=== PATIENT | male | born 1955 | race Caucasian/White ===

== ENCOUNTER → 2016-08-31 | Outpatient (CLI) | payer BC ==
--- NOTE | 2016-08-31 13:14 | REP ---
MR LUMBAR SPINE WITHOUT CONTRAST: HISTORY: Spondylosis. Decreased signal intensity on T2-weighted images is present in the L1-2 through L4-5 intervertebral discs. The discs are decreased in height. These findings are consistent with disc degeneration. A diffuse disc bulge is present at the L1-2 level. There is hypertrophy of the ligamenta flava and posterior articulating facets. These findings produce minimal central canal stenosis. The L1 nerves exit the neural foramina without compression. A diffuse disc bulge is present at the L2-3 level. There is hypertrophy of the ligamenta flava and posterior articulating facets. A 2 mm synovial cyst is present medial to the left L2-3 facet joint. These findings produce moderate central canal stenosis. The L2 nerves exit the neural foramina without compression. A diffuse disc bulge is present at the L3-4 level. There is hypertrophy of the ligamenta flava and posterior articulating facets. A 4 mm synovial cyst is present medial to the left L3-4 facet joint. These findings produce severe central canal stenosis. The L3 nerves exit the neural foramina without compression. The patient is post L4-5 posterior spinal fusion and laminectomy. Metal rods and pedicle screws are present. A diffuse disc bulge is present. This abuts the thecal sac. There is hypertrophy of the posterior articulating facets. There are 4 mm of grade 1 spondylolisthesis of L4 on 5. The L4 nerves exit the neural foramina without compression. A diffuse disc bulge and small central disc protrusion are present at the L5-S1 level. The disc protrusion abuts the thecal sac and S1 nerves. There is hypertrophy of the posterior articulating facets. The L5 nerves exit the neural foramina without compression. The conus medullaris is normal in appearance terminating at the level of the L1-2 intervertebral disc. Normal signal intensity is present in the lumbar vertebral bodies. IMPRESSION: 1. Minimal central canal stenosis at the L1-2 level secondary to disc bulge, ligamentous, and facet hypertrophy. 2. Moderate central canal stenosis at the L2-3 level secondary to disc bulge, ligamentous, and facet hypertrophy and a left synovial cyst. 3. Severe central canal stenosis at the L3-4 level secondary to disc bulge, ligamentous, and facet hypertrophy and a left synovial cyst. 4. The patient is status post L4-5 posterior spinal fusion and laminectomy. There is grade 1 spinal listhesis of L4 on 5. 5. Diffuse disc bugle and small central disc protrusion at the L5-S1 level. The disc protrusion abuts the thecal sac and S1 nerves Signed by Michael Kohler MD 08/31/2016 01:27 P
== END ==
LOC: M RAD 11:07
PROVIDERS: ATTEND Neurological Surgery
DX: R93.7 Abnormal findings on diagnostic imaging of other parts of musculoskeletal system (principal); M47.896 Other spondylosis, lumbar region

== ENCOUNTER → 2016-12-24 | Day surgery (SDC) | payer BC ==
[~2016-12-24] VITALS: Ht 172.7 cm; Wt 129.3 kg
[~2016-12-24] MED LIST: ACETAMINOPHEN TAB 650MG DOSE (2X325MG) As Ordered ONE; ACETAMINOPHEN TAB 650MG DOSE (2X325MG) PO ONE; ADVI200C5 PO; ALBUTEROL SULFATE 2.5 MG/0.5 ML INH NEB SOLN As Ordered ONE; ALBUTEROL SULFATE 2.5 MG/0.5 ML INH NEB SOLN INH ONE; ASPI81TA85 PO; ATOR1TAB19 PO; BIMA01SOL OU; CREO24CA PO; DIGO0.12 PO; FENO134C PO; FURO20TA2 PO; HYDROmorphone HCL 1 MG/ML SYRINGE (J1170) IV PRN; IBUP-1114 PO; INVO300T PO; KETOROLAC 60 MG/2 ML VIAL (J1885) As Ordered ONE; LIDOCAINE 1% MDV 20ML VIAL SC PRN; LIDOCAINE 1% SDV INJ 30 ML VIAL As Ordered ONE; LIDOCAINE 2% INJ 100 MG/5 ML SDV (FOR ANES.) As Ordered ONE; LISI-538 PO; LR 1,000 ML IV ONE; LR 1,000 ML IV SCH; METF850T PO; METO12TA PO; METOCLOPRAMIDE INJ 10MG/2ML VIAL (J2765) As Ordered ONE; MIDAZOLAM INJ 2 MG/2 ML VIAL (J2250) As Ordered ONE; NOVOINJ2 SC; ONDANSETRON 4MG/2ML VIAL (J2405) As Ordered ONE; ONDANSETRON 4MG/2ML VIAL (J2405) IV PRN; PERCOCET 5MG/325MG TAB PO PRN; PRAD150C PO; PROA1AER INH; PROPOFOL 200 MG/20 ML VIAL As Ordered ONE; ROCURONIUM BROMIDE 50 MG/5 ML VIAL As Ordered ONE; SUCCINYLCHOLINE 100 MG/5 ML SYRINGE (J0330) As Ordered ONE; SYMB16INH INH; VICT18IN SC; fentaNYL 100 MCG/2 ML INJECTION (J3010) IV PRN; fentaNYL 250 MCG/5 ML INJECTION (J3010) As Ordered ONE; methylPREDNISolone SUSP 40 MG/ML (DEPO-medrol) VIAL (J1030) As Ordered ONE
[2016-12-24 11:40] VITALS: BP 116/55
--- NOTE | 2016-12-24 12:00 | RO ---
DATE OF PROCEDURE: 12/24/2016 PREOPERATIVE DIAGNOSIS: Left carpal tunnel syndrome. POSTOPERATIVE DIAGNOSIS: Left carpal tunnel syndrome. PROCEDURE: Release of left carpal tunnel with external neurolysis of median nerve at the carpal tunnel. SURGEON: Sena Hicks MD GL[employer] L[employer]INATING OPERATOR: ANESTHESIA: General with tourniquet. FINDINGS: Please see my office notes for detailed preoperative evaluation and discussions. The patient had clinical and electrodiagnostic evidence of left carpal tunnel syndrome. The patient and his understood no guarantees of any kind could be given. They were aware of all options, risks, scope, expected outcome, sequelae and complications of the proposed salvage surgery. They understood not all her symptoms could be readily explained on electrodiagnostic and clinical findings, thus not all may be addressed with surgery. The patient understood the risks of surgery including infection, bleeding, persistence or worsening of symptoms, and/or deficits, need for multiple surgeries, RSD, pulmonary embolism (PE), myocardial infarction (ME) and/or any catastrophic sequelae. The patient once again wished to proceed with surgery, claimed that he does not wish to live with these symptoms and is willing to take any or all risks for any possible benefit. After informed consent and after all measures pertaining to surgery, anesthesia and followup care were discussed with him, he was taken to the operating room. DESCRIPTION OF PROCEDURE: Once in the operating room, general anesthesia was given by the anesthesia service. The area of surgery was prepped and draped in the usual sterile fashion. The left upper extremity was exsanguinated using Esmarch dressings. A skin incision was given along the palmar creases distal to the wrist crease. The alveolar layer was reached and incised. The cut edges of the blood vessels were coagulated with bipolar cautery. Tendons of palmaris longus were . Thenar and hypothenar muscles were stripped off the flexor retinaculum, which was then incised in its entirety. There was nodular hypertrophy of the flexor retinaculum just distal to the wrist crease and it was compressing the median nerve considerably and also there was significant perineural scarring and the superficial adhesions were lysed. Complete decompression of the median nerve was achieved. The wound was irrigated with Depo-Medrol and closed in two layers. The patient tolerated the procedure well and was transferred out of the operating room in stable condition. Operative findings were discussed with the patient's in the waiting room. cc: *Mundo Zayas MD
== END | disposition home or self-care (01) ==
LOC: M SDC 05:57
PROVIDERS: ATTEND Neurological Surgery
DX: G56.02 Carpal tunnel syndrome, left upper limb (principal); I48.91 Unspecified atrial fibrillation; E10.9 Type 1 diabetes mellitus without complications; G47.30 Sleep apnea, unspecified; E78.5 Hyperlipidemia, unspecified; J44.9 Chronic obstructive pulmonary disease, unspecified; Z87.891 Personal history of nicotine dependence; Z79.82 Long term (current) use of aspirin; Z79.02 Long term (current) use of antithrombotics/antiplatelets; Z88.8 Allergy status to other drugs, medicaments and biological substances
CPT/HCPCS: 64721; J0330; J0690; J1030; J1885; J2250; J2405; J2765; J3010

== ENCOUNTER → 2019-09-28 | Outpatient (REF) | payer BC ==
[~2019-09-28] MED LIST changes: -ACETAMINOPHEN TAB 650MG DOSE (2X325MG) As Ordered ONE; -ACETAMINOPHEN TAB 650MG DOSE (2X325MG) PO ONE; -ALBUTEROL SULFATE 2.5 MG/0.5 ML INH NEB SOLN As Ordered ONE; -ALBUTEROL SULFATE 2.5 MG/0.5 ML INH NEB SOLN INH ONE; -HYDROmorphone HCL 1 MG/ML SYRINGE (J1170) IV PRN; -KETOROLAC 60 MG/2 ML VIAL (J1885) As Ordered ONE; -LIDOCAINE 1% MDV 20ML VIAL SC PRN; -LIDOCAINE 1% SDV INJ 30 ML VIAL As Ordered ONE; -LIDOCAINE 2% INJ 100 MG/5 ML SDV (FOR ANES.) As Ordered ONE; -LR 1,000 ML IV ONE; -LR 1,000 ML IV SCH; -METF850T PO; +METF850T4 PO; -METO12TA PO; +METO1TAB87 PO; -METOCLOPRAMIDE INJ 10MG/2ML VIAL (J2765) As Ordered ONE; -MIDAZOLAM INJ 2 MG/2 ML VIAL (J2250) As Ordered ONE; -ONDANSETRON 4MG/2ML VIAL (J2405) As Ordered ONE; -ONDANSETRON 4MG/2ML VIAL (J2405) IV PRN; -PERCOCET 5MG/325MG TAB PO PRN; -PRAD150C PO; +PRAD150C6 PO; -PROA1AER INH; +PROAAER10 INH; -PROPOFOL 200 MG/20 ML VIAL As Ordered ONE; -ROCURONIUM BROMIDE 50 MG/5 ML VIAL As Ordered ONE; -SUCCINYLCHOLINE 100 MG/5 ML SYRINGE (J0330) As Ordered ONE; -fentaNYL 100 MCG/2 ML INJECTION (J3010) IV PRN; -fentaNYL 250 MCG/5 ML INJECTION (J3010) As Ordered ONE; -methylPREDNISolone SUSP 40 MG/ML (DEPO-medrol) VIAL (J1030) As Ordered ONE
[2019-09-28 17:58] LABS: MALB URINE SIEMENS 9.8 MG/L; MAU/CREAT RATIO 9.3 MCG/MG (0.0-30.0)
== END ==
LOC: M LAB REF 16:47
PROVIDERS: ATTEND Nurse Practitioner Family
DX: E11.65 Type 2 diabetes mellitus with hyperglycemia (principal)

== ENCOUNTER → 2020-01-30 | Outpatient (REF) | payer BC ==
[~2020-01-30] MED LIST changes: -ASPI81TA85 PO; +ASPI81TA86 PO
[2020-01-31 16:35] LABS: CREATININE, URINE 78.5 MG/DL; MALB URINE SIEMENS 6.2 MG/L; MAU/CREAT RATIO 7.8 MCG/MG (0.0-30.0)
== END ==
LOC: M LAB REF 15:02
PROVIDERS: ATTEND Nurse Practitioner Family
DX: E11.65 Type 2 diabetes mellitus with hyperglycemia (principal)

== ENCOUNTER → 2022-12-17 | Outpatient (REF) | payer OTHER ==
[~2022-12-17] MED LIST changes: -FENO134C PO; +FENO134C20 PO; -LISI-538 PO; +LISI20TA33 PO
== END ==
LOC: M LAB REF 10:58
PROVIDERS: ATTEND Physician Assistant Medical
DX: R19.7 Diarrhea, unspecified (principal)

== ENCOUNTER → 2022-12-18 | Outpatient (CLI) | payer OTHER | LOC: M RAD 10:34 | PROVIDERS: ATTEND Physician Assistant Medical | DX: R19.7 Diarrhea, unspecified (principal) ==